=== PATIENT | female | born 1975 | race Caucasian/White ===

== ENCOUNTER 2017-07-31 18:41 | Emergency (ER) | payer OTHER ==
[~2017-07-31] VITALS: Ht 167.6 cm; Wt 57.2 kg
[2017-07-31] MEDS ORDERED: SODIUM CHLORIDE 0.9% 1000ML 1,000 ML IV SCH (19:00)
[2017-07-31] MEDS ORDERED: ONDANSETRON HCL INJ 2 MG/ML VIAL IV STA (19:00)
[2017-07-31] MEDS ORDERED: MORPHINE SULFATE 5 MG/ML VIAL IV ONE (19:00)
[2017-07-31] MEDS ORDERED: MORPHINE SULFATE 4 MG/ML SYR IV ONE (19:30)
[2017-07-31] MEDS ORDERED: KETOROLAC TROMETHAMINE 30 MG/ML VIAL IV STA (19:39)
[2017-07-31] MEDS ORDERED: METOCLOPRAMIDE HCL 10 MG/2ML VIAL IV ONE (20:15)
[2017-07-31] MEDS ORDERED: METHYLPREDNISOLONE SOD SUCC 125 MG/2ML VIAL IV ONE (20:15)
[2017-07-31] MEDS ORDERED: FENTANYL CITRATE/PF 100MCG/2 ML INJ IV ONE (20:15)
[2017-07-31 20:54] VITALS: BP 120/80
[2017-07-31] MEDS ORDERED: KETOROLAC TROMETHAMINE 30 MG/ML VIAL IV ONE (21:00)
== END 2017-07-31 21:10 | disposition home or self-care (01) ==
LOC: FSED 18:41
DX: G43.909 Migraine, unspecified, not intractable, without status migrainosus (principal); J01.00 Acute maxillary sinusitis, unspecified; J01.20 Acute ethmoidal sinusitis, unspecified
CPT/HCPCS: 70450; 96374; 96375; 99283; J2270 ×2; J2405; J2765; J2930; J7030